=== PATIENT | female | born 1970 | race Caucasian/White ===

== ENCOUNTER 2020-05-11 15:23 | Emergency (ER) | payer MEDICARE, MEDICAID ==
[~2020-05-11] VITALS: Ht 175.3 cm; Wt 159.0 kg
[~2020-05-11 15:23] MED LIST: CYCL10TA7 MT; DOCU-272 MT; FERR-71 MT; FURO40TA5 MT; HYDR-4346 PO; INSU100I28 SQ; PARO40TA MT; SPIR25TA6 MT
[2020-05-11 17:02] LABS: CHLORIDE 110 mEq/L (98-107)
[2020-05-11 17:08] LABS: BASOPHILS % 0.4 % (0.0-2.0); EOSINOPHILS % 2.1 % (0.0-5.0); HEMATOCRIT. 30.4 % (36.0-48.0); INR 1.5; LYMPHOCYTES % 20.6 % (20.0-50.0); MEAN CORPUSCULAR HEMOGLOBIN 27.7 pg (28.0-32.0); MEAN CORPUSCULAR VOLUME 84.1 fL (81.0-99.0); MEAN PLATELET VOLUME 8.6 fl (7.4-10.4); MONOCYTES % 8.6 % (2.0-8.0); NEUTROPHILS % 68.3 % (40.0-76.0); PLATELET 55 x1000/uL (130-400); PROTHROMBIN TIME 15.5 sec (9.6-11.0); RED BLOOD CELL COUNT 3.61 mill/uL (4.2-5.4); RED CELL DISTRIBUTION WIDTH 20.4 % (11.6-14.6)
[2020-05-12] MEDS ORDERED: ACETAMINOPHEN 325MG TABLET PO ONE (01:15)
[2020-05-12 08:36] VITALS: BP 130/78
== END 2020-05-12 08:38 | disposition home or self-care (01) ==
LOC: ER 15:23
DX: M25.552 Pain in left hip (principal); E11.9 Type 2 diabetes mellitus without complications; I10 Essential (primary) hypertension; M79.7 Fibromyalgia; Z79.4 Long term (current) use of insulin; W06.XXXA Fall from bed, initial encounter; Y93.89 Activity, other specified; Y92.122 Bedroom in nursing home as the place of occurrence of the external cause
CPT/HCPCS: 36415; 72192; 73502; 73552; 73560; 80053; 85025; 86850; 86900; 99285

== ENCOUNTER 2021-01-18 14:43 | Inpatient (IN) | payer MEDICARE, MEDICAID ==
[~2021-01-18] VITALS: Ht 165.1 cm; Wt 138.8 kg
[~2021-01-18 14:43] MED LIST changes: +AMOX1TAB16 MT; +DOCU-268 MT; -DOCU-272 MT; +SULF-13 MT
[2021-01-18] MEDS ORDERED: CLONIDINE 0.1MG TABLET PO PRN (16:00)
[2021-01-18] MEDS ORDERED: ACETAMINOPHEN 325MG TABLET PO PRN (16:00)
[2021-01-18] MEDS ORDERED: ONDANSETRON HCL 4MG/2ML INJ IV PRN (16:00)
[2021-01-18] MEDS ORDERED: MAGNESIUM/ALUMINUM HYDROXIDE/SIMETHICONE 30ML UDC PO PRN (16:00)
[2021-01-18 16:22] LABS: CHLORIDE 111 mEq/L (98-107)
[2021-01-18 17:30] LABS: CLARITY URINE TURBID (CLEAR); COLOR URINE ORANGE (YELLOW); KETONES URINE TRACE (NEGATIVE); LEUKOCYTE ESTERASE URINE 3+ (NEGATIVE); NITRITE URINE POSITIVE (NEGATIVE); OCCULT BLOOD URINE 1+ (NEGATIVE); PROTEIN URINE 1+ (NEGATIVE); SPECIFIC GRAVITY URINE 1.029 (1.005-1.030)
[2021-01-18] MEDS: FUROSEMIDE 40MG/4ML VIAL IV SCH (18:07)
[2021-01-18] MEDS ORDERED: ENOXAPARIN 40MG/0.4ML SYR SUBCUT SCH (20:00)
[2021-01-18 20:12] LABS: BASOPHILS % 0.4 % (0.0-2.0); EOSINOPHILS % 1.2 % (0.0-5.0); HEMATOCRIT. 34.4 % (36.0-48.0); HEMOGLOBIN. 11.8 g/dL (12.0-16.0); LYMPHOCYTES % 13.7 % (20.0-50.0); MEAN CORPUSCULAR HEMOGLOBIN 32.6 pg (28.0-32.0); MEAN CORPUSCULAR VOLUME 95.5 fL (81.0-99.0); MEAN PLATELET VOLUME 7.9 fl (7.4-10.4); MONOCYTES % 6.4 % (2.0-8.0); NEUTROPHILS % 78.3 % (40.0-76.0); RED CELL DISTRIBUTION WIDTH 16.4 % (11.6-14.6)
[2021-01-18 20:13] VITALS: BP 118/55
[2021-01-18] MEDS ORDERED: CEFTRIAXONE 1 G PREMIX 50 ML IV ONE (20:30)
[2021-01-19] VITALS: BP 134/66
[2021-01-19] MEDS ORDERED: DEXTROSE 50% WATER 50ML SYRINGE IV PRN (02:30)
[2021-01-19 04:00] VITALS: BP 140/67
[2021-01-19] MEDS: BLOOD SUGAR DIAGNOSTIC STRIP TEST SCH ×4 (06:44→20:48)
[2021-01-19] MEDS: INSULIN LISPRO 100 UNITS/ML SUBCUT SCH ×4 (06:46→20:56)
[2021-01-19] MEDS: FUROSEMIDE 40MG/4ML VIAL IV SCH ×2 (06:54→16:58)
[2021-01-19 07:25] LABS: BASOPHILS % 0.2 % (0.0-2.0); CHLORIDE 110 mEq/L (98-107); EOSINOPHILS % 1.3 % (0.0-5.0); HEMATOCRIT. 33.4 % (36.0-48.0); HEMOGLOBIN. 11.4 g/dL (12.0-16.0); LYMPHOCYTES % 12.6 % (20.0-50.0); MEAN CORPUSCULAR HEMOGLOBIN 32.4 pg (28.0-32.0); MEAN CORPUSCULAR VOLUME 94.8 fL (81.0-99.0); MEAN PLATELET VOLUME 7.8 fl (7.4-10.4); MONOCYTES % 7.2 % (2.0-8.0); NEUTROPHILS % 78.7 % (40.0-76.0); RED BLOOD CELL COUNT 3.52 mill/uL (4.2-5.4); RED CELL DISTRIBUTION WIDTH 16.2 % (11.6-14.6)
[2021-01-19 07:53] LABS: PLATELET 47 x1000/uL (130-400)
[2021-01-19 08:00] VITALS: BP 132/70
[2021-01-19 12:00] VITALS: BP 148/72
[2021-01-19 16:00] VITALS: BP 114/50
[2021-01-19] MEDS ORDERED: CEFTRIAXONE 1 G PREMIX 50 ML IV SCH (16:30)
[2021-01-19] MEDS: LACTULOSE 20G/30ML UDC PO SCH (16:58)
[2021-01-19] MEDS ORDERED: LACTULOSE 20G/30ML UDC PO SCH (18:00)
[2021-01-19] MEDS: CEFTRIAXONE 1,000 MG in DEXTROSE 5% WATER 50 ML IV SCH (18:16)
[2021-01-19 20:00] VITALS: BP 129/48
[2021-01-20] VITALS: BP 144/66
[2021-01-20] MEDS: LACTULOSE 20G/30ML UDC PO SCH ×5 (00:46→23:02)
[2021-01-20 04:00] VITALS: BP 120/52
[2021-01-20] MEDS: BLOOD SUGAR DIAGNOSTIC STRIP TEST SCH ×4 (06:10→20:55)
[2021-01-20] MEDS: FUROSEMIDE 40MG/4ML VIAL IV SCH ×2 (06:18→17:20)
[2021-01-20 06:40] LABS: BASOPHILS % 0.2 % (0.0-2.0); EOSINOPHILS % 1.1 % (0.0-5.0); HEMOGLOBIN. 11.5 g/dL (12.0-16.0); LYMPHOCYTES % 8.6 % (20.0-50.0); MEAN CORPUSCULAR HEMOGLOBIN 32.2 pg (28.0-32.0); MEAN CORPUSCULAR VOLUME 95.2 fL (81.0-99.0); MONOCYTES % 6.1 % (2.0-8.0); RED BLOOD CELL COUNT 3.57 mill/uL (4.2-5.4); RED CELL DISTRIBUTION WIDTH 16.2 % (11.6-14.6)
[2021-01-20] MEDS: INSULIN LISPRO 100 UNITS/ML SUBCUT SCH ×4 (06:51→20:55)
[2021-01-20 07:07] LABS: CHLORIDE 106 mEq/L (98-107)
[2021-01-20 08:00] VITALS: BP 125/56
[2021-01-20] MEDS ORDERED: POTASSIUM CHLORIDE 20MEQ TABLET SR PO SCH (10:15)
[2021-01-20 11:11] LABS: PHOSPHORUS 2.9 mg/dL (2.5-4.9)
[2021-01-20 12:00] VITALS: BP 123/66
[2021-01-20 16:00] VITALS: BP 128/64
[2021-01-20] MEDS: CEFTRIAXONE 1,000 MG in DEXTROSE 5% WATER 50 ML IV SCH (17:20)
[2021-01-20 20:00] VITALS: BP 107/61
[2021-01-20] MEDS: NITROFURANTOIN 100MG M/M CAPSULE PO SCH (20:54)
[2021-01-21] VITALS: BP 119/54
[2021-01-21 04:00] VITALS: BP 113/57
[2021-01-21] MEDS: BLOOD SUGAR DIAGNOSTIC STRIP TEST SCH ×4 (06:30→21:09)
[2021-01-21] MEDS: LACTULOSE 20G/30ML UDC PO SCH ×4 (06:30→23:20)
[2021-01-21] MEDS: INSULIN LISPRO 100 UNITS/ML SUBCUT SCH ×4 (06:31→21:10)
[2021-01-21] MEDS: FUROSEMIDE 40MG/4ML VIAL IV SCH ×2 (06:31→17:18)
[2021-01-21 06:51] LABS: BASOPHILS % 0.3 % (0.0-2.0); EOSINOPHILS % 3.1 % (0.0-5.0); HEMATOCRIT. 33.9 % (36.0-48.0); HEMOGLOBIN. 11.7 g/dL (12.0-16.0); LYMPHOCYTES % 16.1 % (20.0-50.0); MEAN CORPUSCULAR HEMOGLOBIN 33.1 pg (28.0-32.0); MEAN CORPUSCULAR VOLUME 95.7 fL (81.0-99.0); MEAN PLATELET VOLUME 8.2 fl (7.4-10.4); MONOCYTES % 9.8 % (2.0-8.0); NEUTROPHILS % 70.7 % (40.0-76.0); RED BLOOD CELL COUNT 3.54 mill/uL (4.2-5.4); RED CELL DISTRIBUTION WIDTH 16.1 % (11.6-14.6)
[2021-01-21 07:05] LABS: CHLORIDE 107 mEq/L (98-107)
[2021-01-21 07:45] LABS: PLATELET 49 x1000/uL (130-400)
[2021-01-21 08:00] VITALS: BP 115/67
[2021-01-21 09:14] LABS: PLATELET 48 x1000/uL (130-400)
[2021-01-21 09:15] LABS: PLATELET 49 x1000/uL (130-400)
[2021-01-21] MEDS: NITROFURANTOIN 100MG M/M CAPSULE PO SCH ×2 (09:41→21:09)
[2021-01-21 12:00] VITALS: BP 118/68
[2021-01-21 16:00] VITALS: BP 126/56
[2021-01-21 20:00] VITALS: BP 115/56
[2021-01-22] VITALS: BP 125/66
[2021-01-22 04:00] VITALS: BP 111/58
[2021-01-22] MEDS: BLOOD SUGAR DIAGNOSTIC STRIP TEST SCH ×4 (05:39→21:00)
[2021-01-22] MEDS: LACTULOSE 20G/30ML UDC PO SCH ×4 (05:39→23:17)
[2021-01-22] MEDS: INSULIN LISPRO 100 UNITS/ML SUBCUT SCH ×4 (05:39→22:05)
[2021-01-22] MEDS: FUROSEMIDE 40MG/4ML VIAL IV SCH ×2 (05:39→17:03)
[2021-01-22 07:23] LABS: BASOPHILS % 0.4 % (0.0-2.0); EOSINOPHILS % 3.7 % (0.0-5.0); HEMATOCRIT. 34.3 % (36.0-48.0); HEMOGLOBIN. 11.8 g/dL (12.0-16.0); LYMPHOCYTES % 15.8 % (20.0-50.0); MEAN CORPUSCULAR HEMOGLOBIN 32.9 pg (28.0-32.0); MEAN CORPUSCULAR VOLUME 95.9 fL (81.0-99.0); MEAN PLATELET VOLUME 8.4 fl (7.4-10.4); MONOCYTES % 7.9 % (2.0-8.0); NEUTROPHILS % 72.2 % (40.0-76.0); PLATELET 54 x1000/uL (130-400); RED BLOOD CELL COUNT 3.57 mill/uL (4.2-5.4)
[2021-01-22 07:35] LABS: CHLORIDE 106 mEq/L (98-107)
[2021-01-22 08:00] VITALS: BP 109/54
[2021-01-22] MEDS: NITROFURANTOIN 100MG M/M CAPSULE PO SCH ×2 (08:19→22:06)
[2021-01-22 12:00] VITALS: BP 114/57
[2021-01-22 16:00] VITALS: BP 110/56
[2021-01-22 20:00] VITALS: BP 107/48
[2021-01-23] VITALS: BP 120/38
[2021-01-23 04:00] VITALS: BP 122/48
[2021-01-23] MEDS: LACTULOSE 20G/30ML UDC PO SCH ×3 (06:42→17:33)
[2021-01-23] MEDS: INSULIN LISPRO 100 UNITS/ML SUBCUT SCH ×4 (06:43→22:36)
[2021-01-23] MEDS: BLOOD SUGAR DIAGNOSTIC STRIP TEST SCH ×4 (06:43→21:25)
[2021-01-23] MEDS: FUROSEMIDE 40MG/4ML VIAL IV SCH ×2 (06:43→17:33)
[2021-01-23 08:00] VITALS: BP 137/59
[2021-01-23] MEDS: NITROFURANTOIN 100MG M/M CAPSULE PO SCH ×2 (08:22→22:45)
[2021-01-23 12:00] VITALS: BP 114/55
[2021-01-23 16:00] VITALS: BP 123/55
[2021-01-23 20:00] VITALS: BP 129/64
[2021-01-23] MEDS ORDERED: HYDROCODONE/ACETAMINOPHEN 5/325MG TABLET PO PRN ×2 (20:30→20:44)
[2021-01-24] VITALS: BP 118/56
[2021-01-24] MEDS: LACTULOSE 20G/30ML UDC PO SCH ×3 (01:16→12:00)
[2021-01-24 04:00] VITALS: BP 109/57
[2021-01-24] MEDS: BLOOD SUGAR DIAGNOSTIC STRIP TEST SCH ×2 (06:29→12:56)
[2021-01-24] MEDS: INSULIN LISPRO 100 UNITS/ML SUBCUT SCH ×2 (06:29→12:40)
[2021-01-24 08:00] VITALS: BP 117/50
[2021-01-24] MEDS: NITROFURANTOIN 100MG M/M CAPSULE PO SCH (08:46)
[2021-01-24] MEDS: FUROSEMIDE 40MG/4ML VIAL IV SCH (08:46)
[2021-01-24 11:02] VITALS: BP 113/50
[2021-01-24 12:00] VITALS: BP 106/53
== END 2021-01-24 14:30 | DRG 70 ==
LOC: ER 14:43 → EDBEDREQ 17:30 → ENRESERV 19:11 → 8WST 23:10
PROVIDERS: ADMIT Internal Medicine Nephrology; ATTEND Internal Medicine Nephrology
DX: G93.41 Metabolic encephalopathy (principal); E43 Unspecified severe protein-calorie malnutrition; E72.20 Disorder of urea cycle metabolism, unspecified; N39.0 Urinary tract infection, site not specified; D61.818 Other pancytopenia; E87.1 Hypo-osmolality and hyponatremia; L03.90 Cellulitis, unspecified; Z68.43 Body mass index [BMI] 50.0-59.9, adult; I13.0 Hypertensive heart and chronic kidney disease with heart failure and stage 1 through stage 4 chronic kidney disease, or unspecified chronic kidney disease; E83.51 Hypocalcemia; K74.60 Unspecified cirrhosis of liver; K75.81 Nonalcoholic steatohepatitis (NASH); M79.7 Fibromyalgia; B96.20 Unspecified Escherichia coli [E. coli] as the cause of diseases classified elsewhere; B95.2 Enterococcus as the cause of diseases classified elsewhere; E11.22 Type 2 diabetes mellitus with diabetic chronic kidney disease; N18.1 Chronic kidney disease, stage 1; E66.01 Morbid (severe) obesity due to excess calories; I50.9 Heart failure, unspecified; Z79.4 Long term (current) use of insulin; Z79.899 Other long term (current) drug therapy
CPT/HCPCS: 36415; 71045; 80048; 80053; 81003; 82140; 82962; 83036; 83605; 83735; 83880; 84100; 84484; 85025; 87077; 87186; 93005; 93970; 97162; 99285; J0696; J1815; J1940; J7060

== ENCOUNTER 2022-09-08 18:57 | Emergency (ER) | payer MEDICARE, MEDICAID ==
[~2022-09-08] VITALS: Ht 162.6 cm; Wt 137.0 kg
[~2022-09-08 18:57] MED LIST changes: +CYCL10TA21 MT; -CYCL10TA7 MT; -PARO40TA MT; +[UNRECOGNIZED DRUG - CODE] MT
[2022-09-08 19:41] VITALS: BP 118/62; PULSE 69; RESP 16; TEMP 98.7; O2SAT 97
[2022-09-08 20:59] LABS: BASOPHILS % 0.4 % (0.0-2.0); EOSINOPHILS % 0.8 % (0.0-5.0); HEMATOCRIT. 29.9 % (36.0-48.0); LYMPHOCYTES % 18.5 % (20.0-50.0); MEAN CORPUSCULAR HEMOGLOBIN 29.7 pg (28.0-32.0); MEAN CORPUSCULAR VOLUME 88.7 fL (81.0-99.0); MEAN PLATELET VOLUME 7.9 fl (7.4-10.4); MONOCYTES % 10.2 % (2.0-8.0); NEUTROPHILS % 70.1 % (40.0-76.0); PLATELET 53 x1000/uL (130-400); RED BLOOD CELL COUNT 3.37 mill/uL (4.2-5.4); RED CELL DISTRIBUTION WIDTH 17.3 % (11.6-14.6)
[2022-09-08 21:10] LABS: INR 1.5; PROTHROMBIN TIME 16.1 sec (9.6-11.0)
[2022-09-08 21:12] LABS: CHLORIDE 102 mEq/L (98-107)
[2022-09-08 21:16] LABS: HCG SCREEN NEGATIVE
[2022-09-09] MEDS ORDERED: CALC-586 MT (03:07)
== END 2022-09-09 13:36 | disposition home or self-care (01) ==
LOC: ER 18:57
DX: R10.12 Left upper quadrant pain (principal); F31.9 Bipolar disorder, unspecified; E11.9 Type 2 diabetes mellitus without complications; I10 Essential (primary) hypertension; M79.7 Fibromyalgia; Z79.899 Other long term (current) drug therapy
CPT/HCPCS: 36415; 74176; 80053; 83605; 84703; 85025; 99284